=== PATIENT | female | born 1940 | race Caucasian/White ===

== ENCOUNTER → 2019-04-24 | Outpatient (CLI) | payer OTHER, MEDICARE ==
[~2019-04-24] MED LIST: ALLER-TEC D 5-1 EACH PO; AMOXICILLIN 50500 M1 PO; ATENOLOL 100MG100 M2; BIAXIN 500 MG500 M1 PO; CITALOPRAM HBR40 MG PO; HYDROCHLOROTH12.5 MG PO; KLOR-CON 10 ER10 MEQ; LABETALOL 100100 MG PO; MAGNESIUM OXID200 MG; NORCO 5-325 TA1 EAC1 PO
--- NOTE | 2019-04-24 11:01 | CARDNUC ---
[place] [address] CARDIAC NUCLEAR IMAGING REPORT Name: JOSE MARTIN SHIELDS Room: [facility]#: [id number] Admission: 04/24/19 Attend Phys: Eze Olivares MD Discharge: Date of : 38 Date of Service: 04/24/19 1101 Report #: [id number] THIS REPORT FOR: //name// APPROVED REPORT Study performed: 04/24/2019 09:35:27 Exam: Nuclear Stress Test Indication: Chest pain Patient Location: Out-Patient Stress Tech: Evelyn Avina Stress Nurse: Shavonne Cline RN NM Tech:RANDOLPH Lewis Ht: 5 ft 5 in Wt: 161 lbs BSA: 1.80 m2 BMI: 26.78 Medical History Medical History: hyperlipidemia, hypertension Medications: losartan, atorvastatin, hctz, kcl, asa, carvedilol Allergies: cephalexin,lisinopril, felodipine Cardiac Risk Factors: age, hyperlipidemia, hypertension Exercise History: Sedentary Meds Held (24 hrs): carvedilol Stress Test Details Stress Test: Pharmacologic stress testing performed using 0.4 mg of regadenoson per 5 mL given IV over 10 seconds. Reason for pharmacologic stress test: physical limitation. HR Resting HR: 71 bpm Max Heart Rate (APMHR): 141 bpm Max HR Achieved: 99 bpm Target HR (85% APMHR): 119 bpm % of APMHR: 70 Recovery HR: 86 bpm BP Resting BP: 140/71 mmHg Max BP: 158/79 mmHg ECG Resting ECG: Sinus Rhythm Stress ECG: Sinus Rhythm ST Change: [place] [address] CARDIAC NUCLEAR IMAGING REPORT Name: ALYSONJOSE MARTIN ZURITA Room: [facility]#: [id number] Admission: 04/24/19 Attend Phys: Eze Olivares MD Discharge: Date of : 38 Date of Service: 04/24/19 1101 Report #: [id number] Arrhythmia: None Recovery ECG: Sinus Rhythm Recovery ST Change: None Recovery Arrhythmia: None Clinical Reason for Termination: Completed protocol Exercise duration: 0 min sec Exercise capacity: 1 METs The patient tolerated Lexiscan infusion without significant symptoms. Nurse Comments pt tolerated procedure well Stress ECG Conclusion The baseline EKG show sinus rhythm with no significant ST or T wave abnormality. EKGs post Lexiscan stress show sinus rhythm with no significant ST or T wave changes when compared to baseline. There were no stress-induced arrhythmias. NM EXAM: Myocardial Perfusion REST/STRESS Imaging Protocol: Rest Tc-99m/Stress Tc-99m 1 day Resting Data Rest SPECT myocardial perfusion imaging was performed in supine position 30 minutes following the intravenous injection of 11.2 mCi of Tc-99m Sestamibi. Time of rest injection: 0800 Date: 04/24/2019 The images were gated to evaluate regional wall motion and calculate left ventricular ejection fraction. Administration Route: IV Administration Site: Right AC Pharmacologic Stress Pharmacologic stress test was performed by injecting Regadenoson 0.4 mg IV push followed by the intravenous injection of 33.8 mCi of Tc-99m Sestamibi. Time of stress injection: 0935 Date: 04/24/2019 Administration Route: IV Administration Site: Right AC Gated Stress SPECT was performed 40 minutes after stress injection. The images were gated to evaluate regional wall motion and calculate left ventricular ejection fraction. Prone [place] [address] CARDIAC NUCLEAR IMAGING REPORT Name: JOSE MARTIN SHIELDS Room: [facility]#: [id number] Admission: 04/24/19 Attend Phys: Eze Olivares MD Discharge: Date of : 38 Date of Service: 04/24/19 1101 Report #: [id number] Study Quality Study: Good Artifact: Mild Breast artifact Study Data At rest, the left ventricular ejection fraction was 68%.. Post stress, the left ventricular ejection was 70%.. TID = 1.01. Perfusion Perfusion images obtained in the supine position at rest and post Lexiscan stress show a focal region of photopenia in the distal anterior wall that resolves completely with post stress prone imaging suggesting breast attenuation artifact. No other significant defects are identified. Wall Motion Normal left ventricular wall motion. Nuclear Conclusion ECG Findings: negative for ischemia Clinical Findings: negative for ischemia Nuclear Findings: negative for ischemia Exercise Capacity: not assessed Left Ventricular Function: normal Risk Study: low Myocardial perfusion images show no defect to suggest infarct or ischemia. Left ventricular systolic function appears normal on gated studies. This is a low risk study. <Conclusion> The baseline EKG show sinus rhythm with no significant ST or T wave abnormality. EKGs post Lexiscan stress show sinus rhythm with no significant ST or T wave changes when compared to baseline. There were no stress-induced arrhythmias. <ELECTRONICALLY SIGNED> By: Ishan Mobley MD, FACC 04/24/19 1101 110 110 Ishan Mobley MD, FACC /INF
== END ==
LOC: M.NUC 03-19 13:39
DX: R07.1 Chest pain on breathing (principal); E78.5 Hyperlipidemia, unspecified; I10 Essential (primary) hypertension